=== PATIENT | female | born 1980 | race Caucasian/White ===

== ENCOUNTER 2020-09-07 12:43 | Inpatient (IN) | payer OTHER ==
[~2020-09-07] VITALS: Ht 157.5 cm; Wt 65.8 kg
[2020-09-07] MEDS ORDERED: IBUPROFEN800 MG PO (13:04)
[2020-09-07] MEDS ORDERED: CARBAMAZEPINE200 MG PO (13:04)
[2020-09-07] MEDS ORDERED: OXYC1TAB9 PO (13:05)
== END 2020-09-13 17:35 | DRG 761 ==
LOC: ER 12:43 → OB/GYN 09-08 10:54
PROVIDERS: ADMIT Obstetrics & Gynecology; ATTEND Obstetrics & Gynecology
PROC: BW21ZZZ Computerized Tomography (CT Scan) of Abdomen and Pelvis (ICD-10-PCS; principal; 2020-09-07)
PROC: BU4CZZZ Ultrasonography of Uterus and Ovaries (ICD-10-PCS; 2020-09-07)
DX: D25.1 Intramural leiomyoma of uterus (principal); N83.291 Other ovarian cyst, right side; N93.9 Abnormal uterine and vaginal bleeding, unspecified; N94.6 Dysmenorrhea, unspecified; Z20.822 Contact with and (suspected) exposure to COVID-19